=== PATIENT | female | born 1970 | race Caucasian/White ===

== ENCOUNTER → 2018-01-20 | Outpatient (CLI) | payer BC ==
[~2018-01-20] MED LIST: CIPROFLOXACIN500 MG PO; LOTRISONE 0.05%1 CRE TP; SUBOXONE PO
== END | disposition home or self-care (01) ==
LOC: RAD 12:47
DX: I10 Essential (primary) hypertension (principal); F17.200 Nicotine dependence, unspecified, uncomplicated; R60.0 Localized edema

== ENCOUNTER 2021-12-09 17:44 | Emergency (ER) | payer OTHER ==
[~2021-12-09] VITALS: Wt 81.2 kg
[2021-12-09] MEDS ORDERED: PREDNISONE20 M1 PO (20:24)
[2021-12-09] MEDS ORDERED: HYDROCODON-ACE1 EACH PO (20:24)
[2021-12-09] MEDS ORDERED: CYCLOBENZAPRINE10 MG PO (20:24)
== END 2021-12-09 20:27 | disposition home or self-care (01) ==
LOC: ED 17:44
DX: M54.50 Low back pain, unspecified (principal); M53.3 Sacrococcygeal disorders, not elsewhere classified; M62.830 Muscle spasm of back; Z88.1 Allergy status to other antibiotic agents

== ENCOUNTER 2022-03-12 05:17 | Emergency (ER) | payer OTHER ==
[~2022-03-12] VITALS: Ht 170.1 cm; Wt 83.9 kg
[~2022-03-12 05:17] MED LIST changes: +CYCLOBENZAPRINE10 MG PO; +HYDROCODON-ACE1 EACH PO; +PREDNISONE20 M1 PO
[2022-03-12] MEDS ORDERED: PROZAC20 MG PO (05:51)
[2022-03-12] MEDS ORDERED: HYDROCHLOROTHIA25 M1 PO (05:52)
[2022-03-12] MEDS ORDERED: MOTRIN 600 MG E4 TAB PO (05:53)
[2022-03-12 08:29] LABS: BASO # 0.1 10*3/uL (0.0-0.1); BASO % 0.6 % (0.0-1.0); EOS # 0.1 10*3/uL (0.0-0.4); HEMATOCRIT 40.1 % (37.0-47.0); LYMPH # 1.4 10*3/uL (1.3-4.4); LYMPH % 14.1 % (27.0-41.0); MEAN CELL VOLUME 82.2 fl (81.0-99.0); MEAN CORPUSCULAR HGB 27.5 pg (27.0-31.0); MEAN CORPUSCULAR HGB CONC 33.4 g/dl (33.0-37.0); MEAN PLATELET VOLUME 9.7 fl (9.6-12.3); MONO # 0.4 10*3/uL (0.1-1.0); MONO % 4.1 % (3.0-9.0); NEUT # 8.1 10*3/uL (2.3-7.9); NEUT % 79.9 % (47.0-73.0); PLATELET COUNT AUTOMATED 355 10*3/uL (130-400); RED BLOOD COUNT 4.88 10*6/uL (4.10-5.10); WHITE BLOOD COUNT 10.2 10*3/uL (4.8-10.8)
[2022-03-12 08:36] LABS: ALKALINE PHOSPHATASE 138 U/L (45-117); BUN 26 mg/dl (7-24); CHLORIDE 111 mmol/L (98-107); POTASSIUM 3.1 mmol/L (3.5-5.1); SGOT/AST 16 IU/L (3-35); SGPT/ALT 24 U/L (12-78); SODIUM 139 mmol/L (136-145); TOTAL PROTEIN 8.3 gm/dL (6.4-8.2)
[2022-03-12] MEDS ORDERED: POTASSIUM20 MEQ/16 PO (09:54)
== END 2022-03-12 09:54 | disposition home or self-care (01) ==
LOC: ED 05:17
PROVIDERS: Emergency Medicine
DX: R19.7 Diarrhea, unspecified (principal); Z88.1 Allergy status to other antibiotic agents; Z79.899 Other long term (current) drug therapy

== ENCOUNTER → 2023-01-20 | Outpatient (CLI) | payer OTHER ==
[~2023-01-20] MED LIST changes: +HYDROCHLOROTHIA25 M1 PO; +MOTRIN 600 MG E4 TAB PO; +POTASSIUM20 MEQ/16 PO; +PROZAC20 MG PO
== END | disposition home or self-care (01) ==
LOC: RAD 14:16
PROVIDERS: ATTEND Nurse Practitioner Family
DX: M25.552 Pain in left hip (principal)

== ENCOUNTER → 2023-04-26 | Outpatient (CLI) | payer OTHER ==
[2023-04-26 12:29] LABS: BASO % 0.6 % (0.0-1.0); EOS # 0.1 10*3/uL (0.0-0.4); EOS % 1.3 % (1.0-4.0); HEMATOCRIT 41.5 % (37.0-47.0); LYMPH # 1.4 10*3/uL (1.3-4.4); LYMPH % 21.6 % (27.0-41.0); MEAN CORPUSCULAR HGB 27.7 pg (27.0-31.0); MONO # 0.3 10*3/uL (0.1-1.0); MONO % 4.6 % (3.0-9.0); NEUT # 4.6 10*3/uL (2.3-7.9); NEUT % 71.6 % (47.0-73.0); PLATELET COUNT AUTOMATED 311 10*3/uL (130-400); RED BLOOD COUNT 4.94 10*6/uL (4.10-5.10); RED CELL DISTRI WIDTH 13.2 % (0-14.5); WHITE BLOOD COUNT 6.4 10*3/uL (4.8-10.8)
[2023-04-26 12:58] LABS: ALKALINE PHOSPHATASE 139 U/L (46-116); BUN 13 mg/dl (9-23); CHLORIDE 109 mmol/L (98-107); CHOLESTEROL 220 mg/dL (<200); FREE T4 1.01 ng/dl (0.89-1.76); LDL CHOLESTEROL 128 mg/dL (9-159); POTASSIUM 4.2 mmol/L (3.4-5.1); SGPT/ALT 41 U/L (10-49); TOTAL PROTEIN 7.8 gm/dL (6.0-8.0); TRIGLYCERIDES 105 mg/dl (<150)
== END | disposition home or self-care (01) ==
LOC: CT 11:00 → LAB 11:43
PROVIDERS: ATTEND Nurse Practitioner Family
DX: Z12.2 Encounter for screening for malignant neoplasm of respiratory organs (principal); J43.9 Emphysema, unspecified; R05.3 Chronic cough; R91.8 Other nonspecific abnormal finding of lung field; F17.210 Nicotine dependence, cigarettes, uncomplicated; F32.9 Major depressive disorder, single episode, unspecified; I10 Essential (primary) hypertension

== ENCOUNTER 2023-06-04 19:37 | Emergency (ER) | payer OTHER ==
[~2023-06-04] VITALS: Ht 167.6 cm; Wt 63.5 kg
[2023-06-04] MEDS ORDERED: BENZONATATE100 M1 PO (22:13)
== END 2023-06-04 22:36 | disposition home or self-care (01) ==
LOC: ED 19:37
DX: B34.9 Viral infection, unspecified (principal); Z88.2 Allergy status to sulfonamides; Z88.8 Allergy status to other drugs, medicaments and biological substances; Z98.890 Other specified postprocedural states; Z87.442 Personal history of urinary calculi; Z20.822 Contact with and (suspected) exposure to COVID-19

== ENCOUNTER → 2023-08-17 | Outpatient (CLI) | payer OTHER ==
[~2023-08-17] MED LIST changes: +BENZONATATE100 M1 PO
== END | disposition home or self-care (01) ==
LOC: RAD 10:54
PROVIDERS: ATTEND Nurse Practitioner Family
DX: M25.552 Pain in left hip (principal)

== ENCOUNTER 2023-12-22 14:18 | Emergency (ER) | payer OTHER ==
[~2023-12-22] VITALS: Wt 68.0 kg
[2023-12-22] MEDS ORDERED: NYST SUSP PO (15:06)
[2023-12-22] MEDS ORDERED: AMOX-CLAV 875-1 EACH PO (15:06)
== END 2023-12-22 15:15 | disposition home or self-care (01) ==
LOC: ED 14:18
DX: K04.7 Periapical abscess without sinus (principal); Z87.442 Personal history of urinary calculi; Z88.2 Allergy status to sulfonamides; Z88.8 Allergy status to other drugs, medicaments and biological substances; Z98.890 Other specified postprocedural states

== ENCOUNTER → 2024-06-04 | Outpatient (CLI) | payer OTHER ==
[~2024-06-04] MED LIST changes: +AMOX-CLAV 875-1 EACH PO; +NYST SUSP PO
== END | disposition home or self-care (01) ==
LOC: CT 05-12 10:00
PROVIDERS: ATTEND Internal Medicine Critical Care Medicine
DX: Z12.2 Encounter for screening for malignant neoplasm of respiratory organs (principal); J43.2 Centrilobular emphysema; I25.10 Atherosclerotic heart disease of native coronary artery without angina pectoris; N20.0 Calculus of kidney; R91.8 Other nonspecific abnormal finding of lung field; Z87.891 Personal history of nicotine dependence

== ENCOUNTER 2025-05-28 09:18 | Emergency (ER) | payer OTHER ==
[2025-05-28 09:58] LABS: BASO # 0.1 10*3/uL (0.0-0.1); BASO % 1.0 % (0.0-1.0); EOS # 0.1 10*3/uL (0.0-0.4); EOS % 1.3 % (1.0-4.0); MEAN CELL VOLUME 79.9 fl (81.0-99.0); MEAN CORPUSCULAR HGB 25.3 pg (27.0-31.0); MEAN PLATELET VOLUME 9.6 fl (9.6-12.3); MONO # 0.6 10*3/uL (0.1-1.0); MONO % 6.3 % (3.0-9.0); NEUT # 7.8 10*3/uL (2.3-7.9); NEUT % 77.1 % (47.0-73.0); NUCLEATED RED BLOOD CELL 0.0 % (0.0-0.0); NUCLEATED RED BLOOD CELL 0.0 10*3/uL (0.0-0.0); PLATELET COUNT AUTOMATED 351 10*3/uL (130-400); RED CELL DISTRI WIDTH 14.5 % (0-14.5)
[2025-05-28 10:22] LABS: BUN 16 mg/dl (9-23); CPK 221 U/L (34-171); SGPT/ALT 18 U/L (5-49)
[2025-05-28 10:24] LABS: ETHYL ALCOHOL < 3.0 mg/dl (<3)
[2025-05-28] MEDS ORDERED: diazePAM 5 MG TAB PO ONE (11:00)
[2025-05-28 11:13] LABS: BILIRUBIN Negative (Negative); BLOOD Trace-Lysed (Negative); CLARITY Cloudy (Clear); COLOR Yellow (Yellow); KETONE Trace (Negative); LEUKO ESTERASE 1+ (Negative); NITRITE Negative (Negative); PH 6.0 (4.5-8.0); SPECIFIC GRAVITY 1.025 (1.001-1.030); UROBILINOGEN 1.0 E.U./dl (0.0-1.0)
[2025-05-28 11:21] LABS: URINE AMPHETAMINES Positive (1000ng/ml); URINE BARBITURATES Negative (200ng/ml); URINE BENZODIAZEPINES Negative (200ng/ml); URINE CANNABINOIDS (THC) Negative (50ng/ml); URINE COCAINE Negative (300ng/ml); URINE METHADONE Negative (300ng/ml); URINE OPIATES Negative (300ng/ml); URINE PHENCYCLIDINE Negative (25ng/ml)
[2025-05-28 11:31] LABS: BACTERIA 3+; EPITHELIAL CELLS 21-30
[2025-05-29] MEDS ORDERED: DIOVAN40 MG PO (06:43)
[2025-05-29] MEDS ORDERED: IBU800 M1 PO (06:43)
[2025-05-29] MEDS ORDERED: PANTOPRAZOLE SO40 MG PO (06:44)
== END 2025-05-28 13:46 | disposition home or self-care (01) ==
LOC: ED 09:18
PROVIDERS: Emergency Medicine
DX: F15.10 Other stimulant abuse, uncomplicated (principal); N17.9 Acute kidney failure, unspecified; F31.9 Bipolar disorder, unspecified; Z88.2 Allergy status to sulfonamides

== ENCOUNTER 2025-05-29 06:17 | Emergency (ER) | payer OTHER ==
[~2025-05-29] VITALS: Ht 160 cm; Wt 70.3 kg
[2025-05-29] MEDS ORDERED: LORazepam 1 MG TAB PO ONE (06:35)
[2025-05-29] MEDS ORDERED: DIOVAN40 MG PO (06:43)
[2025-05-29] MEDS ORDERED: IBU800 M1 PO (06:43)
[2025-05-29] MEDS ORDERED: PANTOPRAZOLE SO40 MG PO (06:44)
[2025-05-29] MEDS ORDERED: diazePAM 5 MG TAB PO ONE (09:00)
[2025-05-29 10:58] LABS: BASO # 0.2 10*3/uL (0.0-0.1); BASO % 1.4 % (0.0-1.0); EOS # 0.4 10*3/uL (0.0-0.4); EOS % 4.0 % (1.0-4.0); MEAN CELL VOLUME 80.1 fl (81.0-99.0); MEAN CORPUSCULAR HGB 25.9 pg (27.0-31.0); MEAN PLATELET VOLUME 9.6 fl (9.6-12.3); MONO # 1.1 10*3/uL (0.1-1.0); MONO % 10.2 % (3.0-9.0); NEUT # 5.9 10*3/uL (2.3-7.9); NEUT % 54.5 % (47.0-73.0); NUCLEATED RED BLOOD CELL 0.0 % (0.0-0.0); NUCLEATED RED BLOOD CELL 0.0 10*3/uL (0.0-0.0); PLATELET COUNT AUTOMATED 352 10*3/uL (130-400); RED CELL DISTRI WIDTH 14.6 % (0-14.5)
[2025-05-29 11:50] LABS: BUN 20 mg/dl (9-23); SGPT/ALT 21 U/L (5-49)
[2025-05-29 11:53] LABS: CPK 487 U/L (34-171)
[2025-05-29] MEDS ORDERED: Water, Sterile 10 ML VIAL ONE (12:10)
[2025-05-29 12:15] LABS: ETHYL ALCOHOL < 3.0 mg/dl (<3)
== END 2025-05-29 16:00 ==
LOC: ED 06:17
PROVIDERS: Emergency Medicine
DX: F31.9 Bipolar disorder, unspecified (principal); F15.10 Other stimulant abuse, uncomplicated; Z88.2 Allergy status to sulfonamides; Z79.899 Other long term (current) drug therapy

== ENCOUNTER → 2025-06-06 | Outpatient (CLI) | payer OTHER ==
[~2025-06-06] MED LIST changes: +DIOVAN40 MG PO; +IBU800 M1 PO; +PANTOPRAZOLE SO40 MG PO
== END | disposition home or self-care (01) ==
LOC: CT 09:43
PROVIDERS: ATTEND Internal Medicine Critical Care Medicine
DX: Z12.2 Encounter for screening for malignant neoplasm of respiratory organs (principal); I25.10 Atherosclerotic heart disease of native coronary artery without angina pectoris